=== PATIENT | male | born 1960 | race African-American/Black ===

== ENCOUNTER 2023-06-01 13:13 | Inpatient (IN) | payer OTHER ==
[2023-06-01 13:55] VITALS: BMI 20.9
[2023-06-01] MEDS ORDERED: IBUPROFEN 600 MG TABLET (FP) PO PRN (15:27)
[2023-06-01] MEDS ORDERED: LOPERAMIDE HCL 2 MG CAPSULE PO PRN (15:27)
[2023-06-01] MEDS ORDERED: BENZOCAINE/MENTHOL (CHLORASEPTIC ) LOZENGE MM PRN (15:27)
[2023-06-01] MEDS ORDERED: MAG HYDROX/AL HYDROX/SIMETH 30 ML UNIT-DOSE CUP PO PRN (15:27)
[2023-06-01] MEDS ORDERED: NALOXONE HCL (KLOXXADO) 8 MG SPRAY NS PRN (15:27)
[2023-06-01] MEDS ORDERED: BISMUTH SUBSALICYLATE 262 MG/15 ML BTL PO PRN (15:27)
[2023-06-01] MEDS ORDERED: IBUPROFEN 400 MG TABLET (FP) PO PRN (15:27)
[2023-06-01] MEDS ORDERED: NALOXONE HCL 0.4 MG/ML VIAL IM PRN (15:27)
[2023-06-01] MEDS ORDERED: BENZONATATE 200 MG CAPSULE PO PRN (15:27)
[2023-06-01] MEDS ORDERED: guaiFENesin 600 MG TABLET.ER (FP) PO PRN (15:27)
[2023-06-01] MEDS ORDERED: DICYCLOMINE HCL 10 MG CAPSULE PO PRN (15:27)
[2023-06-01] MEDS ORDERED: POLYETHYLENE GLYCOL (HEALTHYLAX) 3350 17 GM PACKET PO PRN (15:27)
[2023-06-01] MEDS ORDERED: MAGNESIUM HYDROX 2400MG/30ML ORAL SUSPENSION 30 ML CUP PO PRN (15:27)
[2023-06-01] MEDS ORDERED: ACETAMINOPHEN 325 MG TABLET (FP) PO PRN (15:27)
[2023-06-01] MEDS ORDERED: ONDANSETRON *ODT* 4 MG TABLET SL PRN (15:27)
[2023-06-01] MEDS: PRENATAL VITAMINS W/ FOLIC ACID TABLET (FP) PO SCH (18:43)
[2023-06-01] MEDS: METHOCARBAMOL 500 MG TABLET PO PRN (21:59)
[2023-06-01] MEDS: THIAMINE HCL 100 MG TABLET (FP) PO SCH (21:59)
[2023-06-01] MEDS: hydrOXYzine PAMOATE 25 MG CAPSULE (FP) PO PRN (21:59)
[2023-06-01] MEDS: MELATONIN 5 MG TABLETS PO SCH (21:59)
[2023-06-02 08:29] LABS: CHLORIDE 108 mmol/L (98-107); POTASSIUM 4.1 mmol/L (3.5-5.1); SODIUM 142 mmol/L (136-145)
[2023-06-02 08:34] LABS: ALBUMIN 2.6 g/dl (3.4-5.0); ANION GAP 5 mmol/L (4-13); BLOOD UREA NITROGEN 21.8 mg/dL (7-18); CALCIUM 8.2 mg/dL (8.5-10.1); CO2 29 mmol/L (21-32); GLUCOSE,RANDOM 100 mg/dL (74-106)
[2023-06-02 08:37] LABS: CREATININE 1.2 mg/dL (0.55-1.3); SGOT/AST 13 U/L (15-37)
[2023-06-02 08:38] LABS: SGPT/ALT 16 U/L (13-61)
[2023-06-02 08:39] LABS: BILIRUBIN,TOTAL 0.6 mg/dL (0.2-1); TOT PROT 6.5 g/dl (6.4-8.2)
[2023-06-02 08:40] LABS: ALK PHOS 61 U/L (45-117)
[2023-06-02 08:43] LABS: HEMOGLOBIN 12.5 GM/dL (11.7-16.9); MCH 31.9 pg (25.7-33.7); MEAN CELL VOLUME 96.7 fl (80-96); PLATELET COUNT 143 10^3/uL (134-434); RBC 3.93 M/mm3 (4.00-5.60); RDW 14.9 % (11.9-15.9); WHITE BLOOD COUNT 4.4 K/mm3 (4.0-10.0)
[2023-06-02] MEDS: PRENATAL VITAMINS W/ FOLIC ACID TABLET (FP) PO SCH (10:47)
[2023-06-02] MEDS: hydrOXYzine PAMOATE 25 MG CAPSULE (FP) PO PRN ×2 (10:49→22:21)
[2023-06-02] MEDS: NICOTINE 7 MG/24 HOURS TOPICAL PATCH TD SCH (10:50)
[2023-06-02] MEDS: LORazepam 1 MG TABLET PO SCH ×3 (10:50→22:20)
[2023-06-02] MEDS: METHOCARBAMOL 500 MG TABLET PO PRN ×2 (10:50→17:12)
[2023-06-02 13:08] LABS: HIV INTERPRETATION NEGATIVE (NEGATIVE)
[2023-06-02] MEDS: THIAMINE HCL 100 MG TABLET (FP) PO SCH (22:20)
[2023-06-02] MEDS: MELATONIN 5 MG TABLETS PO SCH (22:20)
[2023-06-03] MEDS: LORazepam 0.5 MG TABLET PO SCH ×4 (06:21→22:10)
[2023-06-03] MEDS: METHOCARBAMOL 500 MG TABLET PO PRN (10:53)
[2023-06-03] MEDS: NICOTINE 7 MG/24 HOURS TOPICAL PATCH TD SCH (10:53)
[2023-06-03] MEDS: hydrOXYzine PAMOATE 25 MG CAPSULE (FP) PO PRN (10:53)
[2023-06-03] MEDS: PRENATAL VITAMINS W/ FOLIC ACID TABLET (FP) PO SCH (10:53)
[2023-06-03] MEDS: LACTULOSE 20 GM/30 ML UDC (FOR ORAL USE ONLY) PO SCH ×2 (13:10→22:10)
[2023-06-03] MEDS: THIAMINE HCL 100 MG TABLET (FP) PO SCH (22:10)
[2023-06-03] MEDS: MELATONIN 5 MG TABLETS PO SCH (22:10)
[2023-06-04] MEDS ORDERED: LORazepam 0.5 MG TABLET PO ONE (05:00)
[2023-06-04] MEDS: LACTULOSE 20 GM/30 ML UDC (FOR ORAL USE ONLY) PO SCH (06:37)
[2023-06-04 08:32] VITALS: BP 130/81
[2023-06-04 09:28] VITALS: PULSE 55; RESP 19; TEMP 97.8
[2023-06-04] MEDS: NICOTINE 7 MG/24 HOURS TOPICAL PATCH TD SCH (10:54)
[2023-06-04] MEDS: PRENATAL VITAMINS W/ FOLIC ACID TABLET (FP) PO SCH (10:54)
== END 2023-06-04 09:05 | disposition home or self-care (01) | DRG 774 ==
LOC: YASAS 13:13 → Y6N 16:41
PROVIDERS: ADMIT Allergy & Immunology; ATTEND Surgery
PROC: HZ2ZZZZ Detoxification Services for Substance Abuse Treatment (ICD-10-PCS; principal; 2023-06-01)
DX: F10.230 Alcohol dependence with withdrawal, uncomplicated (principal); F14.20 Cocaine dependence, uncomplicated; F17.210 Nicotine dependence, cigarettes, uncomplicated; R17 Unspecified jaundice; R79.89 Other specified abnormal findings of blood chemistry; Z28.310 Unvaccinated for COVID-19; Z28.9 Immunization not carried out for unspecified reason
CPT/HCPCS: 36415; 80053; 80307; 82140; 82962; 85027; 86780; 87389; 87635; 93005; 93010

== ENCOUNTER 2024-12-02 16:19 | Emergency (ER) | payer OTHER ==
[2024-12-02 16:44] VITALS: BP 147/87; PULSE 65; RESP 17; TEMP 98; BMI 22.3
[2024-12-02] MEDS ORDERED: SODIUM CHLORIDE 0.9% 500 ML INFUS.BAG IV ONE (17:15)
[2024-12-02] MEDS ORDERED: THIAMINE 100 MG TABLET PO ONE (17:15)
== END 2024-12-02 20:01 | disposition left against medical advice (07) ==
LOC: JER 16:19
DX: R41.0 Disorientation, unspecified (principal)
CPT/HCPCS: 82962; 93005; 93010; 99284-25